=== PATIENT | female | born 1965 | race Caucasian/White ===

== ENCOUNTER 2017-09-14 22:42 | Emergency (ER) | payer OTHER ==
[~2017-09-14] VITALS: Ht 154.9 cm; Wt 64.4 kg
[2017-09-14] MEDS ORDERED: TRAZODONE HCL100 MG PO (22:59)
[2017-09-14] MEDS ORDERED: CYMBALTA20 MG PO (22:59)
[2017-09-14] MEDS ORDERED: PROZAC20 MG PO (22:59)
[2017-09-14] MEDS ORDERED: NEURONTIN600 MG PO (22:59)
[2017-09-14 23:20] LABS: HEMATOCRIT 30.7 % (37.0-47.0); HEMOGLOBIN 10.2 gm/dL (12.0-15.0); MCH 27.9 pg (26.0-34.0); MCHC 33.3 g/dL (28.0-37.0); MCV 83.9 fL (80.0-100.0); RBC 3.66 mil/uL (4.20-5.00); WBC 6.1 thou/uL (4.0-11.0)
[2017-09-14 23:22] LABS: URINE BILIRUBIN NEGATIVE (Negative); URINE BLOOD 3+ (Negative); URINE CLARITY CLOUDY; URINE GLUCOSE-RANDOM* NEGATIVE (Negative); URINE KETONES NEGATIVE (Negative); URINE LEUKOCYTES-REFLEX NEGATIVE (Negative); URINE NITRITE-REFLEX NEGATIVE (Negative); URINE PROTEIN (DIPSTICK) NEGATIVE (Negative)
[2017-09-14 23:26] LABS: URINE COLOR YELLOW
[2017-09-14 23:35] LABS: SQUAMOUS 4-10 Moderate /LPF (0-3); URINE RBC >20 Many /HPF (0-2)
[2017-09-14 23:36] LABS: BACTERIA-REFLEX 1-9 Few /HPF (None Seen); CASTS None Seen /LPF (None Seen); CRYSTALS None Seen /LPF (None Seen); URINE WBC-REFLEX 0-5 Rare /HPF (0-5)
[2017-09-15 00:21] LABS: ANION GAP 4 mmol/L (7-16); BUN 9 mg/dL (7-18); CHLORIDE 106 mmol/L (98-107); CO2 28 mmol/L (21-32); CREATININE 0.7 mg/dL (0.6-1.0); GLUCOSE 114 mg/dL (74-106); POTASSIUM 3.9 mmol/L (3.5-5.1); SODIUM 138 mmol/L (136-145)
[2017-09-15 00:27] LABS: ALBUMIN 3.1 g/dL (3.4-5.0); DIRECT BILIRUBIN < 0.1 mg/dL (<0.1-0.3); LIPASE 131 U/L (73-393); SGOT 19 U/L (15-37); SGPT 16 U/L (30-65); TOTAL BILIRUBIN 0.3 mg/dL (<0.1-1.0); TOTAL PROTEIN 6.3 g/dL (6.4-8.2)
[2017-09-15] MEDS ORDERED: NORCO 5-325 TA1 EACH PO (01:47)
[2017-09-15 02:04] VITALS: BP 156/82
== END 2017-09-15 02:05 | disposition home or self-care (01) ==
LOC: ER 22:42
PROVIDERS: Emergency Medicine
DX: R10.9 Unspecified abdominal pain (principal); F17.210 Nicotine dependence, cigarettes, uncomplicated; Z88.0 Allergy status to penicillin; Z88.8 Allergy status to other drugs, medicaments and biological substances